=== PATIENT | female | born 1955 | race Asian ===

== ENCOUNTER 2020-01-01 17:22 | Emergency (ER) | payer BC ==
[~2020-01-01] VITALS: Ht 149.9 cm; Wt 56.8 kg
[2020-01-01 17:36] VITALS: BP 142/88
[2020-01-01] MEDS ORDERED: ATEN-73 PO (17:41)
[2020-01-01] MEDS ORDERED: EMPA10TA PO (17:41)
[2020-01-01] MEDS ORDERED: AMLO-257 PO (17:41)
[2020-01-01] MEDS ORDERED: ATOR20TA65 PO (17:43)
[2020-01-01] MEDS ORDERED: ATEN100T92 PO (17:43)
[2020-01-01] MEDS ORDERED: AMLO-258 PO (17:43)
== END 2020-01-01 18:57 | disposition home or self-care (01) ==
LOC: EMS 17:22
DX: U07.1 COVID-19 (principal); I10 Essential (primary) hypertension; E11.9 Type 2 diabetes mellitus without complications; Z79.899 Other long term (current) drug therapy
CPT/HCPCS: 82962; 99283; U0003